=== PATIENT | female | born 1960 | race Caucasian/White ===

== ENCOUNTER 2017-08-17 19:44 | Emergency (ER) | payer MEDICARE ==
[~2017-08-17] VITALS: Ht 165.1 cm; Wt 104.5 kg
[2017-08-17 19:55] VITALS: Ht 165.1 cm; Wt 104.5 kg
[2017-08-17] MEDS ORDERED: HCTZ25 MG PO (19:56)
[2017-08-17] MEDS ORDERED: CELEXA10 MG PO (19:56)
[2017-08-17] MEDS ORDERED: NEURONTIN 300300 MG PO (19:57)
[2017-08-17] MEDS ORDERED: AMITRIPTYLINE H50 MG PO (19:57)
[2017-08-17] MEDS ORDERED: CYCLOBENZAPRINE10 MG PO (19:57)
[2017-08-17] MEDS ORDERED: VOLTAREN75 MG PO (20:25)
[2017-08-17] MEDS ORDERED: DOXYCYCLINE HY100 M2 PO (20:25)
[2017-08-17 21:07] VITALS: BP 147/87
== END 2017-08-17 20:55 | disposition home or self-care (01) ==
LOC: D.ER 19:44
DX: L03.313 Cellulitis of chest wall (principal)

== ENCOUNTER 2017-10-14 16:24 | Emergency (ER) | payer MEDICAID ==
[~2017-10-14] VITALS: Ht 165.1 cm; Wt 63.6 kg
[~2017-10-14 16:24] MED LIST: AMITRIPTYLINE H50 MG PO; CELEXA10 MG PO; CYCLOBENZAPRINE10 MG PO; DOXYCYCLINE HY100 M2 PO; HCTZ25 MG PO; NEURONTIN 300300 MG PO; VOLTAREN75 MG PO
[2017-10-14 16:58] VITALS: Ht 165.1 cm; Wt 63.6 kg
[2017-10-14] MEDS ORDERED: ALDACTONE25 MG PO (17:00)
[2017-10-14] MEDS ORDERED: KEFLEX500 MG PO (17:01)
[2017-10-14] MEDS ORDERED: NEURONTIN 400400 MG PO (17:01)
[2017-10-14] MEDS ORDERED: BUTALB-APAP-CA1 EACH PO (17:01)
[2017-10-14] MEDS ORDERED: PROAIR HFA8.5 GM INH (17:02)
[2017-10-14 18:01] LABS: BASOPHILS 0.3 % (0-2); EOSINOPHILS 3.2 % (0-7); HEMATOCRIT 42.9 % (36.0-48.0); HEMOGLOBIN 14.3 g/dL (12-16); IMMATURE GRANULOCYTES 0.2 % (0-5); LYMPHOCYTES 21.7 % (15-50); MCH 31.3 pg (26.0-34.0); MCHC 33.3 g/dL (31.0-37.0); MCV 93.9 fL (80.0-100.0); MEAN PLATELET VOLUME 9.2 fL (7.4-10.4); MONOCYTES 8.6 % (2-11); PLATELET COUNT 189 10x3/uL (130-400); RBC 4.57 10x6/uL (4.00-5.40); RDW 12.8 % (11.5-14.5); WBC 8.8 10x3/uL (4.8-10.8)
[2017-10-14 18:24] LABS: ALBUMIN 3.3 g/dL (3.4-5.0); ALKALINE PHOSPHATASE 85 U/L (46-116); ALT (SGPT) 27 U/L (10-68); BILIRUBIN - TOTAL 0.36 mg/dL (0.2-1.3); CALC OSMOLALITY 281 mosm/kg (275-300); CARBON DIOXIDE 32.1 mmol/L (21.0-32.0); CHLORIDE - SERUM 108 mmol/L (98-107); GLUCOSE 84 mg/dL (74-106); POTASSIUM - SERUM 3.6 mmol/L (3.5-5.1); PROTEIN - SERUM 6.5 g/dL (6.4-8.2); SODIUM 143 mmol/L (136-145); UREA NITROGEN 8 mg/dL (7-18); eGFR NON AFRICAN AMERICAN 61 mL/min (90-120)
[2017-10-14 18:33] LABS: PRO BNP 66 pg/mL (0-125)
[2017-10-14 19:00] LABS: TROPONIN-I < 0.017 ng/mL (0.000-0.060)
[2017-10-14] MEDS ORDERED: BAYER CHEWABLE81 MG PO (21:46)
[2017-10-14 23:10] VITALS: BP 133/67
== END 2017-10-14 23:10 | disposition home or self-care (01) ==
LOC: D.ER 16:24
PROVIDERS: Family Medicine
DX: R22.42 Localized swelling, mass and lump, left lower limb (principal); F17.200 Nicotine dependence, unspecified, uncomplicated

== ENCOUNTER 2017-11-20 18:16 | Inpatient (IN) | payer MEDICAID ==
[~2017-11-20] VITALS: Ht 165.1 cm; Wt 68.2 kg
--- NOTE | ~2017-11-20 | EC ---
PATIENT:JERRY CORONA DATE OF SERVICE: 11/21/17 SEX: F MEDICAL RECORD: [id number] DATE OF : 58 [facility] AGE OF PATIENT: 57 ADMISSION DATE: 11/21/17 REFERRING PHYSICIAN: INTERPRETING PHYSICIAN: JANAK RAGLAND MD ECHOCARDIOGRAM REPORT ECHO CHARGES 4 ECHO COMPLETE Date: 11/21/17 CLINICAL DIAGNOSIS: SYNCOPE/TIA VS. CVA ECHOCARDIOGRAPHIC MEASUREMENTS (adult normal given) AC root (d.<3.7cm) 3.0 cm LV Septum d (<1.2 cm> 1.2 cm Valve Excursion 2.0 cm LV Septum (systole) 1.7 cm Left Atria (s.<4.0cm> 3.8 cm LVPW d(<1.2cm) 1.2 cm RV (d.<2.3cm) 2.3 cm LVPW (sytole) 1.7 cm LV diastole(<5.6CM) 5.0 cm MV E-F(>70mm/sec) cm LV systole 3.5 cm LVOT Diameter 2.1 cm MV exc.(>10mm) cm Est.ejection fraction (50-75%) % DOPPLER: LVIT cm/sec A 78.0 cm/sec E 70.0 cm/sec LA cm/sec RVSP 38.4 mmHg LVOT 73.0 cm/sec AOP1/2T m/s Asc. Ao 141 cm/sec RVOT 61.0 cm/sec RA cm/sec PA 89.0 cm/sec AV Gradient Peak 8.0 mmHg AV Mean 4.0 mmHg AV Area 1.7 cm MV Gradient Peak 3.8 mmHg MV Mean 1.6 mmHg MV Area cm COMMENTS: Director Marketing Analytics: Carmela VILLELAOE Automation Controls Engineer: Osbaldo Muhammad TAPE# PACS Pericardial Effusion N DATE OF SERVICE: 11/21/2017 Echocardiogram FINDINGS: 1. Left ventricular chamber size is within normal limits. Left ventricular systolic function is normal. Overall ejection fraction estimated at 55%. 2. Left atrium, right atrium, and right ventricle chamber sizes are within normal limits. 3. Valvular structures have normal structure and motion. ECHOCARDIOGRAM REPORT [id number] JERRY CORONA 4. Doppler interrogation reveals woaz-rc-wfxwlkck mitral regurgitation, uvcu-ih-kiuewnww tricuspid regurgitation, no other valvular insufficiency or stenosis. Pulmonary systolic pressure is estimated at 38 mmHg. 5. No evidence of pericardial effusion or left ventricular thrombus. TRANSINT:[id number] Voice Confirmation ID: [id number] DOCUMENT ID: [id number] JANAK RAGLAND MD at 1823 CC: [id number] DICTATION DATE: 11/22/17908 SORTING AND FOLDING SUPERVISOR: 11/22/1739 DIS IN 11/22/17 [facility] [address] [place] [address]
[~2017-11-20 18:16] MED LIST changes: +ALDACTONE25 MG PO; +BAYER CHEWABLE81 MG PO; +BUTALB-APAP-CA1 EACH PO; +KEFLEX500 MG PO; +NEURONTIN 400400 MG PO; +PROAIR HFA8.5 GM INH
[2017-11-20] MEDS ORDERED: LASIX20 MG PO (18:27)
[2017-11-20] MEDS ORDERED: LEVAQUIN250 MG PO (18:28)
[2017-11-20] MEDS ORDERED: OMEPRAZOLE20 M1 PO (18:28)
[2017-11-20 18:53] LABS: BASOPHILS 0.3 % (0-2); EOSINOPHILS 2.3 % (0-7); HEMATOCRIT 40.1 % (36.0-48.0); HEMOGLOBIN 13.4 g/dL (12-16); IMMATURE GRANULOCYTES 0.4 % (0-5); LYMPHOCYTES 15.1 % (15-50); MCHC 33.4 g/dL (31.0-37.0); MCV 92.8 fL (80.0-100.0); MEAN PLATELET VOLUME 8.9 fL (7.4-10.4); MONOCYTES 10.5 % (2-11); NEUTROPHILS 71.4 % (40-80); PLATELET COUNT 208 10x3/uL (130-400); RBC 4.32 10x6/uL (4.00-5.40); RDW 12.4 % (11.5-14.5)
[2017-11-20 19:19] LABS: ALBUMIN 3.2 g/dL (3.4-5.0); ALKALINE PHOSPHATASE 96 U/L (46-116); ALT (SGPT) 26 U/L (10-68); BILIRUBIN - TOTAL 0.45 mg/dL (0.2-1.3); CALC OSMOLALITY 283 mosm/kg (275-300); CALCIUM 8.2 mg/dL (8.5-10.1); CARBON DIOXIDE 28.1 mmol/L (21.0-32.0); CHLORIDE - SERUM 106 mmol/L (98-107); CREATININE - SERUM 1.2 mg/dL (0.6-1.3); GLUCOSE 125 mg/dL (74-106); PROTEIN - SERUM 6.6 g/dL (6.4-8.2); SODIUM 143 mmol/L (136-145); UREA NITROGEN 8 mg/dL (7-18); eGFR NON AFRICAN AMERICAN 49 mL/min (90-120)
[2017-11-20 19:47] LABS: CKMB 0.6 U/L (0.0-3.6); CREATINE KINASE 53 UL (21-215)
[2017-11-20 20:00] LABS: TROPONIN-I < 0.017 ng/mL (0.000-0.060)
[2017-11-20 21:45] LABS: CKMB 0.5 U/L (0.0-3.6); CREATINE KINASE 50 UL (21-215); TROPONIN-I < 0.017 ng/mL (0.000-0.060)
[2017-11-20] MEDS ORDERED: PHENERGAN DM SYR5 ML (23:46)
[2017-11-21] VITALS (9 sets, daily range): BP systolic 90–137; BP diastolic 42–74; Ht 165.1 cm; Wt 68.2 kg
[2017-11-21 03:41] LABS: BASOPHILS 0.3 % (0-2); EOSINOPHILS 4.6 % (0-7); HEMATOCRIT 35.9 % (36.0-48.0); HEMOGLOBIN 11.8 g/dL (12-16); IMMATURE GRANULOCYTES 0.3 % (0-5); LYMPHOCYTES 29.3 % (15-50); MCH 30.4 pg (26.0-34.0); MCHC 32.9 g/dL (31.0-37.0); MCV 92.5 fL (80.0-100.0); MEAN PLATELET VOLUME 9.1 fL (7.4-10.4); MONOCYTES 12.7 % (2-11); NEUTROPHILS 52.8 % (40-80); PLATELET COUNT 209 10x3/uL (130-400); RBC 3.88 10x6/uL (4.00-5.40); RDW 12.7 % (11.5-14.5); WBC 7.6 10x3/uL (4.8-10.8)
[2017-11-21 04:11] LABS: CALC OSMOLALITY 285 mosm/kg (275-300); CALCIUM 7.7 mg/dL (8.5-10.1); CARBON DIOXIDE 27.8 mmol/L (21.0-32.0); CHLORIDE - SERUM 109 mmol/L (98-107); CKMB 0.4 U/L (0.0-3.6); CREATINE KINASE 39 UL (21-215); CREATININE - SERUM 0.9 mg/dL (0.6-1.3); GLUCOSE 144 mg/dL (74-106); POTASSIUM - SERUM 3.4 mmol/L (3.5-5.1); SODIUM 143 mmol/L (136-145); UREA NITROGEN 8 mg/dL (7-18); eGFR NON AFRICAN AMERICAN 68 mL/min (90-120)
[2017-11-21 04:17] LABS: TROPONIN-I < 0.017 ng/mL (0.000-0.060)
[2017-11-21 10:06] LABS: CKMB 0.6 U/L (0.0-3.6); CREATINE KINASE 38 UL (21-215)
[2017-11-21 10:07] LABS: TROPONIN-I < 0.017 ng/mL (0.000-0.060)
[2017-11-22 04:00] VITALS: BP 130/74
[2017-11-22 05:32] LABS: BASOPHILS 0.4 % (0-2); EOSINOPHILS 4.8 % (0-7); HEMATOCRIT 39.9 % (36.0-48.0); HEMOGLOBIN 13.1 g/dL (12-16); IMMATURE GRANULOCYTES 0.3 % (0-5); LYMPHOCYTES 19.6 % (15-50); MCH 30.4 pg (26.0-34.0); MCHC 32.8 g/dL (31.0-37.0); MCV 92.6 fL (80.0-100.0); MEAN PLATELET VOLUME 9.1 fL (7.4-10.4); NEUTROPHILS 64.9 % (40-80); PLATELET COUNT 218 10x3/uL (130-400); RBC 4.31 10x6/uL (4.00-5.40); RDW 12.5 % (11.5-14.5); WBC 7.7 10x3/uL (4.8-10.8)
[2017-11-22 05:53] LABS: ALBUMIN 2.8 g/dL (3.4-5.0); ALKALINE PHOSPHATASE 90 U/L (46-116); BILIRUBIN - TOTAL 0.23 mg/dL (0.2-1.3); CALCIUM 8.2 mg/dL (8.5-10.1); CARBON DIOXIDE 28.9 mmol/L (21.0-32.0); CHLORIDE - SERUM 107 mmol/L (98-107); CHOLESTEROL, TOTAL 227 mg/dL (0-200); CREATININE - SERUM 0.7 mg/dL (0.6-1.3); GLUCOSE 116 mg/dL (74-106); HDL CHOLESTEROL 45 mg/dL (32-96); LDL CHOLESTEROL 150 mg/dL (0-100); LDL-HDL RATIO 3.3 ratio (1.5-3.5); PROTEIN - SERUM 6.1 g/dL (6.4-8.2); SODIUM 142 mmol/L (136-145); TRIGLYCERIDE 162 mg/dL (30-200); eGFR NON AFRICAN AMERICAN > 90 mL/min (90-120)
[2017-11-22 05:55] LABS: ALT (SGPT) 18 U/L (10-68); CALC OSMOLALITY 280 mosm/kg (275-300); POTASSIUM - SERUM 4.2 mmol/L (3.5-5.1); UREA NITROGEN 5 mg/dL (7-18)
[2017-11-22 07:37] VITALS: BP 141/70
[2017-11-22 10:57] VITALS: BP 132/66
== END 2017-11-22 15:00 | disposition home or self-care (01) | DRG 69 ==
LOC: D.ER 18:16 → D.M3 21:14 → OBSVTIME 21:14 → D.M3 21:14 → D.ER 21:52 → D.M3 11-21 15:37
PROVIDERS: Family Medicine
DX: G45.9 Transient cerebral ischemic attack, unspecified (principal); R55 Syncope and collapse; R40.2364 Coma scale, best motor response, obeys commands, 24 hours or more after hospital admission; R40.2144 Coma scale, eyes open, spontaneous, 24 hours or more after hospital admission; R40.2254 Coma scale, best verbal response, oriented, 24 hours or more after hospital admission; E86.0 Dehydration; E87.6 Hypokalemia; Z72.0 Tobacco use

== ENCOUNTER 2017-12-09 19:25 | Emergency (ER) | payer MEDICAID ==
[~2017-12-09] VITALS: Ht 165.1 cm; Wt 63.6 kg
[~2017-12-09 19:25] MED LIST changes: +LASIX20 MG PO; +LEVAQUIN250 MG PO; +OMEPRAZOLE20 M1 PO; +PHENERGAN DM SYR5 ML
[2017-12-09 19:42] VITALS: Ht 165.1 cm; Wt 63.6 kg
[2017-12-09 20:15] LABS: BASOPHILS 0.1 % (0-2); EOSINOPHILS 8.1 % (0-7); HEMATOCRIT 42.2 % (36.0-48.0); HEMOGLOBIN 14.3 g/dL (12-16); IMMATURE GRANULOCYTES 0.2 % (0-5); LYMPHOCYTES 7.7 % (15-50); MCH 31.2 pg (26.0-34.0); MCHC 33.9 g/dL (31.0-37.0); MCV 92.1 fL (80.0-100.0); MEAN PLATELET VOLUME 9.3 fL (7.4-10.4); MONOCYTES 5.3 % (2-11); NEUTROPHILS 78.6 % (40-80); PLATELET COUNT 216 10x3/uL (130-400); RBC 4.58 10x6/uL (4.00-5.40); WBC 8.3 10x3/uL (4.8-10.8)
[2017-12-09 20:29] LABS: ALBUMIN 3.3 g/dL (3.4-5.0); ANION GAP 12.8 mmol/L (8-16); BILIRUBIN - TOTAL 0.46 mg/dL (0.2-1.3); CARBON DIOXIDE 28.1 mmol/L (21.0-32.0); CREATININE - SERUM 0.9 mg/dL (0.6-1.3); POTASSIUM - SERUM 3.9 mmol/L (3.5-5.1); PROTEIN - SERUM 6.8 g/dL (6.4-8.2)
[2017-12-09 20:54] LABS: APPEARANCE CLEAR (CLEAR); BILIRUBIN NEGATIVE (NEGATIVE); COLOR YELLOW (YELLOW); GLUCOSE NEGATIVE (NEGATIVE); KETONE NEGATIVE (NEGATIVE); NITRITE NEGATIVE (NEGATIVE); PROTEIN NEGATIVE (NEGATIVE); RED CELLS - URINE OCC /hpf (0-5); UROBILINOGEN NORMAL (NORMAL); WHITE CELLS - URINE NSEEN /hpf (0-5)
[2017-12-09 20:55] LABS: BACTERIA NONE SEEN /hpf (NONE SEEN); EPITHELIAL CELLS RARE /hpf (0-5)
[2017-12-09] MEDS ORDERED: ZOFRAN ODT4 MG/UDTAB PO (23:53)
[2017-12-09] MEDS ORDERED: BENTYL 20 MG TA20 MG PO (23:53)
[2017-12-10 00:23] VITALS: BP 107/73
== END 2017-12-10 00:24 | disposition home or self-care (01) ==
LOC: D.ER 19:25
PROVIDERS: Family Medicine
DX: A08.4 Viral intestinal infection, unspecified (principal); R11.2 Nausea with vomiting, unspecified

== ENCOUNTER → 2018-05-05 23:49 | Outpatient (CLI) | payer MEDICAID ==
[2017-12-09 19:42] VITALS: BMI 23.3
[~2018-05-05 23:49] MED LIST changes: +BENTYL 20 MG TA20 MG PO; +ZOFRAN ODT4 MG/UDTAB PO
== END | disposition home or self-care (01) ==
LOC: D.MAMMO 16:00
PROVIDERS: ATTEND Nurse Practitioner Family
DX: Z12.31 Encounter for screening mammogram for malignant neoplasm of breast (principal)

== ENCOUNTER 2018-06-15 08:00 | Outpatient (CLI) | payer MEDICAID ==
[2017-12-09 19:42] VITALS: BMI 23.3
== END 2018-06-15 09:00 | disposition home or self-care (01) ==
LOC: D.MAMMO 08:00
PROVIDERS: ATTEND Family Medicine
DX: R92.1 Mammographic calcification found on diagnostic imaging of breast (principal); N64.89 Other specified disorders of breast

== ENCOUNTER 2019-01-08 07:47 | Day surgery (SDC) | payer MEDICAID ==
[2019-01-07 11:10] LABS: HEMATOCRIT 40.2 % (36.0-48.0); HEMOGLOBIN 12.8 g/dL (12-16); MCH 30.8 pg (26.0-34.0); MCHC 31.8 g/dL (31.0-37.0); MCV 96.6 fL (80.0-100.0); MEAN PLATELET VOLUME 8.7 fL (7.4-10.4); RBC 4.16 10x6/uL (4.00-5.40); WBC 10.7 10x3/uL (4.8-10.8)
[~2019-01-08] VITALS: Ht 165.1 cm; Wt 68.0 kg
[2019-01-08] MEDS ORDERED: AUGMENTIN 875-11 TAB PO (08:23)
[2019-01-08] MEDS ORDERED: MOBIC7.5 MG PO (08:24)
[2019-01-08] MEDS ORDERED: CATAPRES0.1 MG PO (08:25)
[2019-01-08 08:28] VITALS: BP 132/72; Ht 165.1 cm; Wt 68.0 kg
--- NOTE | 2019-01-08 08:36 | NUR ---
SUICIDE SCREEN POSITIVE FOR LIFETIME QUESTION, NOTIFIED BOYD MONTOYA.
[2019-01-08] MEDS ORDERED: HYDROCODON-ACE1 EAC7 PO (08:55)
--- NOTE | 2019-01-08 09:50 | NUR ---
DR. HERNANDEZ NOTIFIED AND REVIEWED PT'S BEHAVIOR AND ASSESSMENT RESULTS. PT IS A LOW RISK PER DR. HERNANDEZ. DR. HERNANDEZ STATED TO GIVE RESOURCES TO PT AT TIME OF DISCHARGE. NO FURTHER ORDERS AT THIS TIME. RESOURCES REVIEWED WITH PT AND SHE VERBALIZED UNDERSTANDING.
--- NOTE | 2019-01-08 13:52 | OP ---
PATIENT NAME: JERRY CORONA MEDICAL RECORD: [id number] :58 LOCATION:[facility] ADMISSION DATE: SURGEON: HARDEEP PAGE DO DATE OF OPERATION: 01/08/2019 PROCEDURE PERFORMED: Excision of lipoma on the left shoulder, superficial. PREOPERATIVE DIAGNOSIS: Lipoma greater than 5 cm or soft tissue mass, left shoulder. POSTOPERATIVE DIAGNOSIS: Lipoma greater than 5 cm or soft tissue mass, left shoulder. INDICATIONS: Ms. Corona is a 58-year-old female who has had this mass on her left shoulder for quite some time. She is tired of dealing with it, it has affected her activities of daily living and she wanted it removed. An MRI was done and indicated a lipoma, nonmalignant. I informed her of the risks including infection, bleeding, recurrence of the lipoma, damage to nerves and vessels, need for further surgery, and she signed the consent. SURGEON: Hardeep Page DO DESCRIPTION OF PROCEDURE: The patient was taken to the operative suite, laid in supine position. Given general anesthetic and LMA was placed. She was given 2 grams of Ancef preoperatively. Left shoulder was then prepped and draped in sterile fashion. A time-out was performed. Everyone was in agreement as to the correct side, site, patient and procedure. Incision then began over the lipoma in an oblique fashion in case she had to have another shoulder surgery. The skin was incised and the lipoma was removed. Any bleeding was coagulated with a Bovie at that time. Once I felt the extent of the tumor was removed, it was thoroughly irrigated and Todd was placed on the wound to cut down on any possible bleeding. She was then closed with 2-0 Vicryl in inverted interrupted fashion, 4-0 Monocryl ran on the skin and Dermabond on the skin. It was dressed with Telfa and Tegaderm. She was then awakened and taken to recovery in stable condition. Blood loss approximately 25 mL. COMPLICATIONS: None. TRANSINT:[id number] Voice Confirmation ID: [id number] DOCUMENT ID: [id number] HARDEEP PAGE DO at 1352 CC: [id number] DICTATION DATE: 01/08/19 1116 INSTRUCTION LIBRARIAN: 01/08/[address] [facility] [place] [address]
== END 2019-01-08 12:58 | disposition home or self-care (01) ==
LOC: D.OPS 07:47 → D.PAN 09:40 → D.OPS 09:45
PROVIDERS: Anesthesiology; ATTEND Orthopaedic Surgery
DX: D17.22 Benign lipomatous neoplasm of skin and subcutaneous tissue of left arm (principal)

== ENCOUNTER → 2019-04-22 09:01 | Outpatient (CLI) | payer MEDICAID ==
[2019-01-08 08:28] VITALS: BMI 25.0
[~2019-04-22 09:01] MED LIST changes: +AUGMENTIN 875-11 TAB PO; +CATAPRES0.1 MG PO; +HYDROCODON-ACE1 EAC7 PO; +MOBIC7.5 MG PO
== END | disposition home or self-care (01) ==
LOC: D.NM 09:01
PROVIDERS: ATTEND Internal Medicine Gastroenterology
DX: R10.84 Generalized abdominal pain (principal)

== ENCOUNTER → 2019-05-12 10:49 | Outpatient (CLI) | payer MEDICAID ==
[2019-01-08 08:28] VITALS: BMI 25.0
[~2019-05-12 10:49] MED LIST changes: +CELEXA20 MG PO
== END | disposition home or self-care (01) ==
LOC: D.RAD 10:49
PROVIDERS: ATTEND Nurse Practitioner
DX: R10.9 Unspecified abdominal pain (principal)

== ENCOUNTER 2019-05-14 13:13 | Inpatient (IN) | payer MEDICAID ==
[~2019-05-14] VITALS: Ht 165.1 cm; Wt 104.8 kg
[~2019-05-14 13:13] MED LIST changes: -CELEXA20 MG PO
[2019-05-14 14:43] LABS: BASOPHILS 0.7 % (0-2); EOSINOPHILS 12.5 % (0-7); HEMATOCRIT 34.3 % (36.0-48.0); HEMOGLOBIN 10.7 g/dL (12-16); IMMATURE GRANULOCYTES 0.3 % (0-5); LYMPHOCYTES 26.4 % (15-50); MCH 27.2 pg (26.0-34.0); MCHC 31.2 g/dL (31.0-37.0); MCV 87.1 fL (80.0-100.0); MEAN PLATELET VOLUME 8.8 fL (7.4-10.4); MONOCYTES 8.7 % (2-11); NEUTROPHILS 51.4 % (40-80); PLATELET COUNT 328 10x3/uL (130-400); RBC 3.94 10x6/uL (4.00-5.40); RDW 13.8 % (11.5-14.5); WBC 7.6 10x3/uL (4.8-10.8)
[2019-05-14] MEDS ORDERED: CELEXA20 MG PO (14:55)
[2019-05-14] MEDS ORDERED: MOBIC7.5 MG PO (14:56)
[2019-05-14 14:58] LABS: ANION GAP 10.9 mmol/L (8-16); CALCIUM 7.8 mg/dL (8.5-10.1); CARBON DIOXIDE 28.1 mmol/L (21.0-32.0)
[2019-05-14 15:04] LABS: ALBUMIN 2.9 g/dL (3.4-5.0); BILIRUBIN - TOTAL 0.46 mg/dL (0.2-1.3); MAGNESIUM - SERUM 2.1 mg/dL (1.8-2.4); PROTEIN - SERUM 5.8 g/dL (6.4-8.2)
[2019-05-14 15:19] VITALS: BP 132/76; BMI 38.5
[2019-05-14 17:03] LABS: BILIRUBIN NEGATIVE (NEGATIVE); GLUCOSE NEGATIVE (NEGATIVE); KETONE NEGATIVE (NEGATIVE); NITRITE NEGATIVE (NEGATIVE); SPECIFIC GRAVITY 1.015 (1.005-1.020); UROBILINOGEN NORMAL (NORMAL)
[2019-05-14 20:00] VITALS: BP 140/62
[2019-05-15] VITALS: BP 107/73
[2019-05-15 04:00] VITALS: BP 112/67
[2019-05-15 06:15] LABS: BASOPHILS 0.8 % (0-2); EOSINOPHILS 11.4 % (0-7); HEMATOCRIT 32.9 % (36.0-48.0); IMMATURE GRANULOCYTES 0.2 % (0-5); LYMPHOCYTES 25.9 % (15-50); MCH 26.7 pg (26.0-34.0); MCHC 30.4 g/dL (31.0-37.0); MEAN PLATELET VOLUME 8.8 fL (7.4-10.4); MONOCYTES 12.2 % (2-11); NEUTROPHILS 49.5 % (40-80); PLATELET COUNT 299 10x3/uL (130-400); RBC 3.74 10x6/uL (4.00-5.40); RDW 14.1 % (11.5-14.5); WBC 6.4 10x3/uL (4.8-10.8)
[2019-05-15 06:29] LABS: ANION GAP 9.9 mmol/L (8-16); CALCIUM 8.1 mg/dL (8.5-10.1); CARBON DIOXIDE 28.2 mmol/L (21.0-32.0); MAGNESIUM - SERUM 2.3 mg/dL (1.8-2.4); PHOSPHOROUS 4.1 mg/dL (2.5-4.9); POTASSIUM - SERUM 4.1 mmol/L (3.5-5.1)
--- NOTE | 2019-05-15 07:54 | NUR ---
RESTING IN BED WITH EYES OPEN, ALERT AND ORIENTED. IV LOCATED TO RIGHT FOREARM RUNNING NS @ 100, PROTONIX @ 10ML/HR. NO S/S OF DISTRESS AT THIS TIME, DENIES NEEDS OTHER THAN ZOPHRAN WHICH IT ISNT TIME FOR ,WILL TAKE WHEN ITS DUE. WILL CONT TO MONITOR.
[2019-05-15 08:29] VITALS: BP 147/72
[2019-05-15 12:23] VITALS: Ht 165.1 cm; Wt 104.8 kg
[2019-05-15 12:47] VITALS: BP 118/79
--- NOTE | 2019-05-15 15:30 | NUR ---
PT IS BECOMING VERY IRRITABLE AND CUSSING AT STAFF. COMPLAINS THAT HE WANTS TO GET OFF OF HIS BOTTOM SO I TRIED TO MOVE HIM OVER ON HIS SIDE WHERE HE PROCEEDED TO TELL ME THAT I WAS A DUMBASS FOR SUGGESTING THAT AND THAT HE ISNT ABLE TO LAY ON HIS SIDE. OFFERED TO PULL HIM UP IN BED WHERE HE PROCEEDED TO TELL ME THAT WOULDNT WORK AND I WAS STUPID FOR MENTIONING THAT.
[2019-05-15 16:45] VITALS: BP 128/69
--- NOTE | 2019-05-15 17:00 | NUR ---
PT COMPLAINING ABOUT BOTTOM HURTING, ALLOWED US TO PLACE A PILLOW UNDER HIS BOTTOM, REMOVED HIS SCDS AFTER HE DAMANDED THEY BE TAKEN OFF, PLACED PILLOW UNDER HIS LEGS. WILL CONT TO MONITOR.
--- NOTE | 2019-05-15 19:00 | NUR ---
BEDSIDE REPORT RECEIVED AND CARE OF PT ASSUMED. PT LYING IN HIGH DIAZ'S POSITION VISITING WITH FAMILY MEMBER. IV TO RIGHT FA INFILTRATED...TURNED OFF. WILL MONITOR FOR NEEDS.
--- NOTE | 2019-05-15 19:28 | NUR ---
HS MEDICATIONS GIVEN. MIXED MIRALAX AND METAMUCIL WITH ORANGE JUICE. FAMILY MEMBER IS AT BEDSIDE.
--- NOTE | 2019-05-15 19:45 | NUR ---
STARTED NEW IV TO LEFT WRIST USING 22 GUAGE CATHETER IN ONE STICK. IV FLUIDS RE-STARTED.
[2019-05-15 20:00] VITALS: BP 117/81
[2019-05-16 04:00] VITALS: BP 118/83
[2019-05-16 06:07] LABS: BASOPHILS 0.8 % (0-2); EOSINOPHILS 12.5 % (0-7); HEMATOCRIT 36.4 % (36.0-48.0); HEMOGLOBIN 11.1 g/dL (12-16); IMMATURE GRANULOCYTES 0.2 % (0-5); LYMPHOCYTES 31.4 % (15-50); MCH 27.1 pg (26.0-34.0); MCHC 30.5 g/dL (31.0-37.0); MCV 88.8 fL (80.0-100.0); MEAN PLATELET VOLUME 9.2 fL (7.4-10.4); MONOCYTES 10.2 % (2-11); NEUTROPHILS 44.9 % (40-80); RDW 13.9 % (11.5-14.5); WBC 6.3 10x3/uL (4.8-10.8)
[2019-05-16 06:23] LABS: ANION GAP 10.8 mmol/L (8-16); CALCIUM 8.2 mg/dL (8.5-10.1); CARBON DIOXIDE 28.8 mmol/L (21.0-32.0); MAGNESIUM - SERUM 2.3 mg/dL (1.8-2.4); PHOSPHOROUS 3.5 mg/dL (2.5-4.9); POTASSIUM - SERUM 3.6 mmol/L (3.5-5.1)
[2019-05-16 06:29] LABS: PLATELET COUNT 376 10x3/uL (130-400)
[2019-05-16 07:39] VITALS: BP 148/83
--- NOTE | 2019-05-16 08:11 | NUR ---
SHE IS AWAKE THIS MORNING, STILL NO BM YET. MORNING MEDS GIVEN. FAMILY AT THE BEDSIDE. NO NEW ISSUES.
[2019-05-16 11:47] VITALS: BP 148/80
[2019-05-16 15:19] VITALS: BP 144/75
--- NOTE | 2019-05-16 19:00 | NUR ---
BEDSIDE REPORT RECEIVED AND CARE OF PT ASSUMED. PT LYING IN MID DIAZ'S POSITION VISITING WITH FAMILY MEMBER. IV TO LEFT WRIST PATENT WITH NS INFUSING AT 100ML/HR AND PROTONIX INFUSING AT 10 ML/HR. PT CURRENTLY DRINKING GOLYTELY PER ORDER.
[2019-05-16 20:00] VITALS: BP 156/77
--- NOTE | 2019-05-16 20:35 | NUR ---
HS MEDICATIONS GIVEN. MIXED MIRALAX AND METAMUCIL WITH JUICE.
[2019-05-17] VITALS: BP 146/89
[2019-05-17 04:00] VITALS: BP 127/71
[2019-05-17 05:23] LABS: BASOPHILS 0.8 % (0-2); EOSINOPHILS 13.3 % (0-7); HEMATOCRIT 35.8 % (36.0-48.0); IMMATURE GRANULOCYTES 0.4 % (0-5); LYMPHOCYTES 29.9 % (15-50); MCH 26.7 pg (26.0-34.0); MCHC 30.7 g/dL (31.0-37.0); MCV 86.9 fL (80.0-100.0); MEAN PLATELET VOLUME 9.1 fL (7.4-10.4); MONOCYTES 13.7 % (2-11); NEUTROPHILS 41.9 % (40-80); PLATELET COUNT 343 10x3/uL (130-400); RBC 4.12 10x6/uL (4.00-5.40); RDW 13.7 % (11.5-14.5); WBC 5.2 10x3/uL (4.8-10.8)
[2019-05-17 05:38] LABS: ANION GAP 9.8 mmol/L (8-16); CALCIUM 8.2 mg/dL (8.5-10.1); CARBON DIOXIDE 29.7 mmol/L (21.0-32.0); CREATININE - SERUM 0.9 mg/dL (0.6-1.3); MAGNESIUM - SERUM 2.1 mg/dL (1.8-2.4); PHOSPHOROUS 3.2 mg/dL (2.5-4.9); POTASSIUM - SERUM 3.5 mmol/L (3.5-5.1)
--- NOTE | 2019-05-17 07:55 | NUR ---
SHE STILL HAS NOT HAD A BM, PASSING GAS. DID NOT DRINK VERY MUCH OF THE MEDICINE TO MAKE HER GO TO HAVE A BM. I EDUCATED HER ABOUT THE IMPORTANCE OF DRINKING/TAKING HER MEDS.
[2019-05-17 08:58] VITALS: BP 140/88
--- NOTE | 2019-05-17 08:58 | NUR ---
HAD A SOFT FORMED BM.
[2019-05-17] MEDS ORDERED: METAMUCIL PACKE1 PKT PO (12:21)
[2019-05-17] MEDS ORDERED: MIRALAX17 GM PO (12:21)
[2019-05-17] MEDS ORDERED: CARAFATE1 G PO (12:21)
--- NOTE | 2019-05-17 12:57 | MORECARE ---
CASE MANAGEMENT DISCHARGE SUMMARY PATIENT: JERRY CORONA UNIT: [id number] ADM DATE: 05/14/19 AGE: 58 : 58 SEX: F ROOM/BED: D.2209 AUTHOR: MARIE CHARLES PHYSICIAN: REFERRING PHYSICIAN: PIYUSH BARBOSA MD DATE OF SERVICE: 05/17/19 Discharge Plan Patient Name: JERRY CORONA [facility] [facility] 1960 Planned Disposition: Home Anticipated Discharge Date: Discharge Date: Expected LOS: Initial Reviewer: [email or web address] Initial Review Date: 05/14/2019 Generated: 05/17/19 1:56 pm Patient Name: JERRY CORONA Page 52821 at 1257 All edits/amendments must be made on the electronic document DICTATION DATE: 05/17/19 1256 [place] ATTENDANT: LON 05/17/19 1256 RPT#: [id number] DC DATE: STATUS: ADM IN [facility] [address] [place] [address] END OF REPORT
--- NOTE | 2019-05-17 13:03 | MORECARE ---
CASE MANAGEMENT DISCHARGE SUMMARY PATIENT: JERRY CORONA UNIT: [id number] ADM DATE: 05/14/19 AGE: 58 : 58 SEX: F ROOM/BED: D.2200 AUTHOR: MELVIN,DOC PHYSICIAN: REFERRING PHYSICIAN: PIYUSH BARBOSA MD DATE OF SERVICE: 05/17/19 Discharge Plan Patient Name: JERRY CORONA Facility: [facility]:[place] : 1960 Planned Disposition: Home Anticipated Discharge Date: Discharge Date: Expected LOS: Initial Reviewer: [email or web address] Initial Review Date: 05/14/2019 Generated: 05/17/19 2:03 pm Comments DCP- Discharge Planning Updated by [email or web address]: Angela Geller on 05/17/19 12:[address] Patient Name: JERRY CORONA Admission Status: Elective Accout number: [id number] Admission Date: 05-14-2019 : 1960 Admission Diagnosis: Attending: PIYUSH ALANIZ Current LOS: 3 Anticipated DC Date: Planned Disposition: Home Primary Insurance: MEDICAID [place] Discharge Planning Comments: CM met with patient to complete initial dc planning assessment. CM educated patient on the CM role and verbal consent given by patient to complete assessment. Patient lives at home with her daughter where she is independent with her care at home. At discharge patient plans to return home and feels this is a safe discharge. She will drive herself home. CM discussed availability of home health, rehab services, and medical equipment. Patient denied known discharge needs at this time. CM will continue to follow and will assist as needed with dc plans/needs. Vice President Client Services: Angela Geller DCPIA - Discharge Planning Initial Assessment Updated by [email or web address]: Angela Geller on 05/17/19 1:01 pm * Is the patient Alert and Oriented? Yes * How many steps to enter\exit or inside your home? * PCP ARSALAN * Pharmacy [facility] [address] * Preadmission Environment Home with Family * ADLs Independent * Equipment None * List name and contact numbers for known caregivers / representatives who currently or will assist patient after discharge: CRYSTAL (DAUGHTER) * Verbal permission to speak to the caregivers and representatives has been obtained from the patient. N/A * Community resources currently utilized Home Health * Additional services required to return to the preadmission environment? No * Can the patient safely return to the preadmission environment? Yes * Has this patient been hospitalized within the prior 30 days at any hospital? No Last DP export: 05/17/19 11:56 a Patient Name: JERRY CORONA Page 86412 at 1303 All edits/amendments must be made on the electronic document DICTATION DATE: 05/17/19 1303 BLENDING OPERATOR: LON 05/17/19 1303 RPT#: [id number] DC DATE: STATUS: ADM IN [facility] [address] [place] [address] END OF REPORT
[2019-05-17 13:49] VITALS: BP 148/63
--- NOTE | 2019-05-17 15:14 | NUR ---
IV OUT, DISCHARGE INSTRUCTIONS GONE OVER, QUESTIONS ANSWERED. SHE WALKDED OUT WITH OUR [facility].
--- NOTE | 2019-05-18 10:04 | MORECARE ---
CASE MANAGEMENT DISCHARGE SUMMARY PATIENT: JERRY CORONA UNIT: [id number] ADM DATE: 05/14/19 AGE: 58 : 58 SEX: F ROOM/BED: D.2201 AUTHOR: MELVINDOC PHYSICIAN: REFERRING PHYSICIAN: PIYUSH BARBOSA MD DATE OF SERVICE: 05/18/19 Discharge Plan Patient Name: JERRY CORONA Facility: [facility]:[place] : 1960 Planned Disposition: Home Anticipated Discharge Date: Discharge Date: 05/17/2019 Expected LOS: 0 Initial Reviewer: [email or web address] Initial Review Date: 05/14/2019 Generated: 05/18/19 11:04 am Comments DCP- Discharge Planning Updated by [email or web address]: Angela Geller on 05/17/19 12:[address] Patient Name: JERRY CORONA Admission Status: Elective Accout number: [id number] Admission Date: 05-14-2019 : 1960 Admission Diagnosis: Attending: PIYUSH ALANIZ Current LOS: 3 Anticipated DC Date: Planned Disposition: Home Primary Insurance: MEDICAID [place] Discharge Planning Comments: CM met with patient to complete initial dc planning assessment. CM educated patient on the CM role and verbal consent given by patient to complete assessment. Patient lives at home with her daughter where she is independent with her care at home. At discharge patient plans to return home and feels this is a safe discharge. She will drive herself home. CM discussed availability of home health, rehab services, and medical equipment. Patient denied known discharge needs at this time. CM will continue to follow and will assist as needed with dc plans/needs. [employer] Programmer: Angela Geller DCPIA - Discharge Planning Initial Assessment Updated by [email or web address]: Angela Geller on 05/17/19 1:01 pm * Is the patient Alert and Oriented? Yes * How many steps to enter\exit or inside your home? * PCP ARSALAN * Pharmacy [facility] [address] * Preadmission Environment Home with Family * ADLs Independent * Equipment None * List name and contact numbers for known caregivers / representatives who currently or will assist patient after discharge: CRYSTAL (DAUGHTER) * Verbal permission to speak to the caregivers and representatives has been obtained from the patient. N/A * Community resources currently utilized Home Health * Additional services required to return to the preadmission environment? No * Can the patient safely return to the preadmission environment? Yes * Has this patient been hospitalized within the prior 30 days at any hospital? No Last DP export: 05/17/19 12:03 p Patient Name: JERRY CORONA Page [id number] at 1004 All edits/amendments must be made on the electronic document DICTATION DATE: 05/18/19 1004 ELECTRICAL SUBCONTRACTOR: LON 05/18/19 1004 RPT#: [id number] DC DATE:05/17/19 STATUS: DIS IN [facility] [address] [place] [address] END OF REPORT
== END 2019-05-17 15:16 | disposition home or self-care (01) | DRG 389 ==
LOC: D.MS 13:13
PROVIDERS: Internal Medicine Nephrology; ADMIT Family Medicine; ATTEND Family Medicine
DX: K56.609 Unspecified intestinal obstruction, unspecified as to partial versus complete obstruction (principal); E44.0 Moderate protein-calorie malnutrition; K59.00 Constipation, unspecified; E86.0 Dehydration; K21.9 Gastro-esophageal reflux disease without esophagitis; J45.909 Unspecified asthma, uncomplicated; M79.7 Fibromyalgia; F32.9 Major depressive disorder, single episode, unspecified; D64.9 Anemia, unspecified

== ENCOUNTER → 2019-11-19 08:52 | Outpatient (CLI) | payer MEDICARE, MEDICAID ==
[2019-05-15 12:23] VITALS: BMI 38.4
[~2019-11-19 08:52] MED LIST changes: +CARAFATE1 G PO; +CELEXA20 MG PO; +METAMUCIL PACKE1 PKT PO; +MIRALAX17 GM PO
== END | disposition home or self-care (01) ==
LOC: D.HCCECHO 08:52
PROVIDERS: ATTEND Internal Medicine Cardiovascular Disease
DX: I20.9 Angina pectoris, unspecified (principal); R01.1 Cardiac murmur, unspecified

== ENCOUNTER 2019-12-08 10:32 | Day surgery (SDC) | payer MEDICARE, MEDICAID ==
[~2019-12-08] VITALS: Ht 165.1 cm; Wt 73.6 kg
--- NOTE | ~2019-12-08 | HEMODYNAMI ---
PATIENT:JERRY CORONA MEDICAL RECORD: [id number] : 58 LOCATION:[facility] ADMISSION DATE: 12/08/19 Generatedon:12/08/201913:17 Patient name: JERRY CORONA Patient #: [id number] SSN: [id number] : 1960 Date of study: 12/08/2019 Page: Of Hemodynamic Procedure Report Patient Data Patient Demographics Procedure consent was obtained First Name: JERRY Gender: Female Last Name: CJ : 1960 [facility] Initial: D Age: 59 year(s) Patient #: [id number] Race: SSN: [id number] Additional ID: [id number] Contact details Address: [place] [address] State: [place] City: [place] Zip code: [address] Past Medical History Performed procedures and imaging results Date Procedure Procedure Results Comments 11/19/2019 Stress testing Positive->Intermediate with SPECT MPI risk Allergies: No known allergies Admission Admission Data Admission Date: 12/08/2019 Admission Time: 10:32 Arrival Date: 12/08/2019 Arrival Time: 0:00 Admit Source: Other Insurance Payor: Medicare [facility] #: [id number] Height (in.): 65 BSA: 1.81 (m2) Height (cm.): 165.1 BMI: 27.01 (kg/m2) Weight (lbs.): 162.33 Weight (kg.): 73.63 Lab Results Lab Result Date: 12/08/2019 Lab Result Time: 0:00 Biochemistry Name Units Result Min Max BUN mg/dl 13 --(--*-)-- 7 18 Creatinine mg/dl 1.1 --(--*-)-- 0.6 1.3 eGFR ml/min 54 *-(----)-- 90 120 NONAFRICAN CBC Name Units Result Min Max Hematocrit % 38.9 *-(----)-- 42 54 Hemoglobin g/dl 12.3 *-(----)-- 13.5 17.5 Procedure Procedure Types Cath Procedure Diagnostic Procedure [facility] w/Coronaries Sedation Charges Moderate Sedation up to 15 minutes Procedure Description Procedure Date Procedure Date: 12/08/2019 Procedure Start Time: 13:01 Procedure End Time: 13:16 Procedure Staff Name Function Julio Zuluaga MD Performing Physician Sienna Barriga RT Monitor Charley Lee RT Scrub Arnoldo Wetzel RN Nurse Indication Chest pain Procedure Data Cath Procedure Fluoroscopy Diagnostic fluoroscopy Total fluoroscopy Time: 4.6 time: 4.6 min min Diagnostic fluoroscopy Total fluoroscopy dose: 508 dose: 508 mGy mGy Contrast Material Contrast Material Type Amount (ml) Isovue 370 58 Entry Location Entry Primary Successful Side Size Upsize Upsize Entry Closure Rick ccessful Closure Location (Fr) 1 (Fr) 2 (Fr) Remarks Device Remarks Radial Right 6 Fr Mechanical artery Short Compression Estimated blood loss: 5 ml Diagnostic catheters Device Type Used For End Catheter Placement DIAGNOSTIC Clearwater 110cm 5 Procedure Fr catheter ([id number]) DIAGNOSTIC Pigtail 5Fr Procedure catheter ([id number]) Procedure Complications No complications Procedure Medications Medication Administration Route Dosage 0.9% NaCl I.V. 100 ml/hr Oxygen etCO2 Nasal cannula 2 l/min Heparin Flush Bag added to field 2 bags (1000units/500ml NS) Lidocaine 2% added to field 20 Radial Cocktail added to field 1 syringe (Verapamil 2mg/Nitro 400mcg/Heparin 1500units) Versed I.V. 2 mg Fentanyl I.V. 100 mcg Radial Cocktail I.A. 1 syringe (Verapamil 2mg/Nitro 400mcg/Heparin 1500units) Versed I.V. 1 mg Hemodynamics Rest BSA: 1.81 (m2) HGB: 12.3 (g/dl) O2 Consumption: Estimated: 183.05 (ml/min) O2 Co nsumption indexed: Estimated:101.13 (ml/min/m) Heart Rate: 87 (bpm) Pressure Samples Time Site Value (mmHg) Purpose Heart Use Rate(bpm) 13:04 LV 117/58,66 Snapshot 114 13:05 AO (51) Pullback 98 13:05 LV 78/6,14 Pullback 98 13:13 AO 102/75(82) Pullback 93 13:13 LV 111/19,20 Pullback 93 Gradients Valve Time Site 1 Site 2 Mean SEP/DFP Peak To Heart Use (mmHg) (sec/min) Peak Rate (mmHg) (bpm) Aortic 13:05 LV AO 2 5 98 78/6,14 (51) Aortic 13:13 LV AO 16 24 9 93 111/19,20 102/75(82) Calculations Valve P-P Mean Valve Index Valve Source Name Gradient Area Flow (cm2) Aortic 9 16 9 16 Snapshots Pre Cath Intra NCS Post Cath Vital Signs Time Heart Resp SPO2 etCO2 NIBP (mmHg) Rhythm Pain Sedation Rate (ipm) (%) (mmHg) Status Level (bpm) 12:52:34 94 15 100 39.1 141/85(105) NSR 0 (11) 10(A) , No pain 12:56:44 95 10 97 44.4 139/84(109) NSR 0 (11) 10(A) , No pain 13:00:52 94 12 96 43.6 127/83(113) NSR 0 (11) 10(A) , No pain 13:05:06 91 11 94 42.1 93/53(85) NSR 0 (11) 9(A) , No pain 13:10:01 103 12 97 47.3 92/62(79) NSR 0 (11) 9(A) , No pain 13:13:54 97 11 95 47.4 107/79(102) NSR 0 (11) 9(A) , No pain Medications Time Medication Route Dose Verified Delivered Reason Notes Effectiveness by by 12:51:51 0.9% NaCl I.V. 100 Arnoldo Arnoldo Per ml/hr Rashard Wetzel physician RN RN 12:52:05 Oxygen etCO2 2 l/min Arnoldo Arnoldo for low 02 Nasal Lorigan Lorigan sats cannula RN RN 12:52:17 Heparin Flush added 2 bags Arnoldo Arnoldo used for Bag to Lorigan Lorigan procedure (1000units/500ml RN RN NS) 12:52:27 Lidocaine 2% added 20ml Arnoldo Arnoldo for local to vial Lorigan Lorigan anesthetic field MONGE RN 12:52:37 Radial Cocktail added 1 Arnoldo Arnoldo used for (Verapamil to syringe Lorigan Lorigan procedure 2mg/Nitro RN RN 400mcg/Heparin 1500units) 13:02:23 Versed I.V. 2 mg Arnoldo Arnoldo for sedation Rashard Wetzel RN RN 13:02:30 Fentanyl I.V. 100 mcg Arnoldo Arnoldo for sedation Rashard Wetzel RN RN 13:04:17 Radial Cocktail I.A. 1 Arnoldo Julio for (Verapamil syringe Rashard Zuluaga MD vasodilation 2mg/Nitro RN 400mcg/Heparin 1500units) 13:04:28 Versed I.V. 1 mg Arnoldo Arnoldo for sedation Rashard Wetzel RN [employer] Log Time Note 11:41:25 Informed consent obtained and on chart 11:41:41 Diagnostic Cath Status : Elective 11:43:46 Indication : Chest pain 11:44:14 Lab Result : eGFR NONAFRICAN 54 ml/min 11:44:14 Lab Result : Hemoglobin 12.3 g/dl 11:44:14 Lab Result : BUN 13 mg/dl 11:44:14 Lab Result : Creatinine 1.1 mg/dl 11:44:14 Lab Result : Hematocrit 38.9 % 11:44:18 Arrival Date: 12/08/2019 12:00:00 AM 11:44:19 Admit Source: Other 11:44:21 Patient Height : 65 inches 11:44:25 Patient Weight : 162.33 lbs 11:44:32 Insurance Payor : Medicare 11:46:05 ACC Patient presents with Stable Angina CCS Anginal Class 2--Slight limitation of ordinary activity. 11:46:08 Procedure Status Elective Heart Cath (OP). 11:46:09 Time tracking: Regular hours (M-F 7:00 - 5:00) 11:46:14 Plan of Care:Hemodynamics will remain stable., Cardiac rhythm will remain stable., Comfort level will be maintained., Respiratory function will remain adequate., Patient/ family verbilizes understanding of procedure., Procedure tolerated without complication., Recovers from procedure without complications.. 11:46:32 H&P Date Dictated: 12/08/2019 Within 30 days and on chart.. 11:46:33 Pre-procedure instructions explained to patient. 11:46:33 Pre-op teaching completed and patient verbalized understanding. 11:46:36 Patient NPO since Midnight. 11:46:42 Patient allergic to No known allergies 11:46:47 Lab results completed and on chart. 11:47:04 Stress Test: yes; abnormal INFERIOR 11:47:08 Alarms reviewed by R. N. 11:47:08 Sharps counted by scrub and verified by R.N. 12:34:25 Charley Lee RT(R) sent for patient. Start room use. 12:34:34 Family in patients room. 12:41:26 Patient received from Pre/Post Procedure Room to CCL 2 Alert and oriented. Tansferred to table in Supine position. 12:41:27 Warm blankets applied, and ritu hugger turned on for patient comfort. 12::27 Correct patient and procedure confirmed by team. 12::28 ECG and BP/O2 sat monitors applied to patient. 12:51:31 Full Disclosure recording started 12:51:32 Vital chart was started 12:51:36 Rhythm: sinus rhythm 12:51:37 Baseline sample Acquired. 12:51:44 Is the patient allergic to Iodine/contrast media? No. 12:51:48 Was the patient premedicated? No 12:51:49 Is patient on blood thinner?No 12:51:51 0.9% NaCl 100 ml/hr I.V. was administered by Arnoldo Wetzel RN; Per physician; Verbal order read back and verified. 12:51:51 Patient diabetic? No. 12:51:54 If diabetic: On Metformin? N/A 12:51:56 Patient not . Patient is over age 55. 12:51:57 ----Pre-sedation anethsthesia assessment.---- 12:51:59 Previous problem with sedation/anesthesia? No ? 12:52:01 Snore? Unknown 12:52:03 Sleep apnea? No 12:52:04 Deviated septum? No 12:52:05 Oxygen 2 l/min etCO2 Nasal cannula was administered by Arnoldo Wetzel RN; for low 02 sats; Verbal order read back and verified. 12:52:06 Opens mouth fully? Yes 12:52:07 Sticks out tongue? Yes 12:52:09 Airway obstruction? No ? 12:52:11 Dentures? No ? 12:52:17 Heparin Flush Bag (1000units/500ml NS) 2 bags added to field was administered by Arnoldo Wetzel RN; used for procedure; Verbal order read back and verified. 12:52:27 Lidocaine 2% 20ml vial added to field was administered by Arnoldo Wetzel RN; for local anesthetic; Verbal order read back and verified. 12:52:34 Pre procedure: right dorsailis pedis pulse 2+ Normal; easily identifiable; not easily obliterated 12:52:37 Radial Cocktail (Verapamil 2mg/Nitro 400mcg/Heparin 1500units) 1 syringe added to field was administered by Arnoldo Wetzel RN; used for procedure; Verbal order read back and verified. 12:52:38 Modified Jimi's test Ulnar < 7 seconds 12:52:41 Patient pain scale 0/10 ?. 12:52:45 IV patent on arrival in left antecubital with 0.9% NaCl at [facility]. 12:52:50 Right Radial & Right Groin area was prepped with chlora-prep and draped in sterile fashion 12:52:54 Use device set Radial Dx or PCI 12:52:55 ACIST Syringe (54689) opened to sterile field. 12:52:56 Medline Cath Pack ([id number]) opened to sterile field. 12:52:56 Bag Decanter (2002S) opened to sterile field. 12:52:58 ACIST Hand Control (45603) opened to sterile field. 12:52:58 ACIST Manifold (83146) opened to sterile field. 12:52:59 [facility] Wrist Support ([id number]) opened to sterile field. 12:53:00 NEEDLE Cook 21G 4cm Radial (M17864) opened to sterile field. 12:53:02 EMERALD Guide Wire (835-918) opened to sterile field. 12:53:02 SHEATH 6FR RAIN (9870615) opened to sterile field. 13:00:55 --------ALL STOP TIME OUT------ 13:00:56 Final Timeout: patient, procedure, and site verified with staff and physician. All members of the team are in agreement. 13:01:01 Right Radial & Right Groin site verified by team. 13:01:04 Fire Safety Assessment: A--An alcohol-based skin anteseptic being used preoperatively., C--Open oxygen or nitrous oxide is being used., D--An ESU, laser, or fiber-optic light is being used. 13:01:08 Physical assessment completed. ASA score P 2 - A patient with mild systemic disease as per Julio Zuluaga MD. 13:01:12 3a) 45-59 Moderately reduced kidney function. 13:01:15 Maximum allowable contrast dose (3.7 X eGFR X 0.75)150 ml. 13:01:19 Sedation plan: IV Moderate Sedation Medication:Versed, Fentanyl 13::23 Procedure started. 13:01:27 Local anesthetic to right radial artery with Lidocaine 2% by Julio Zuluaga MD.INITIAL ACCESS ONLY 13:02:23 Versed 2 mg I.V. was administered by Arnoldo Wetzel RN; for sedation; Verbal order read back and verified. 13:02:30 Fentanyl 100 mcg I.V. was administered by Arnoldo Wetzel RN; for sedation; Verbal order read back and verified. 13:02:51 A 6 Fr Short sheath was inserted into the Right Radial artery 13:03:43 A DIAGNOSTIC [place] 110cm 5 Fr catheter (070843) was advanced over the wire and used for Procedure. 13:04:17 Radial Cocktail (Verapamil 2mg/Nitro 400mcg/Heparin 1500units) 1 syringe I.A. was administered by Julio Zuluaga MD; for vasodilation; Verbal order read back and verified. 13:04:28 Versed 1 mg I.V. was administered by Arnoldo Wetzel RN; for sedation; Verbal order read back and verified. 13:04:35 LV gram done using LEGER 13:04:41 Injector settings: Ml/sec: 5, Volume: 15, 13:04:59 LV hemodynamics recorded. 13:05:42 EF : 35 % 13:06:01 Zero performed for pressure channel P1 13:07:15 RCA angiography performed. 13:07:18 Injector settings: Ml/sec: 3, Volume: 6, 13:08:09 Catheter exchanged over wire. 13:09:07 GUIDE 6FR JL 3.5 guide catheter ([id number]) opened to sterile field. 13:10:23 LCA angiography performed. 13:10:26 Injector settings: Ml/sec: 3, Volume: 6, 13:10:49 ACCDominant side:Left 13:11:24 Catheter exchanged over wire. 13:12:22 A DIAGNOSTIC Pigtail 5Fr catheter ([id number]) was advanced over the wire and used for Procedure. 13:13:24 LV gram done using LEGER 13:13:29 Injector settings: Ml/sec: 5, Volume: 15, 13:13:38 EF : 35 % 13:13:40 Catheter removed. 13:13:46 ZEPHYR REGULAR TR BAND (322706) opened to sterile field. 13:13:57 Sheath removed intact; hemostasis achieved with Mechanical Compression to the Right Radial artery. 13:13:59 Procedure ended.(Physican Out) 13:14:20 Fluoroscopy time 04.60 minutes. 13:14:23 Flurop Dose total: 508 13:14:23 Fluoroscopy dose: 508 mGy 13:14:27 Dose Area Product 87234 mGy/cm. 13:14:31 Contrast amount:Isovue 370 58ml. 13:14:34 Maximum allowable dose exceeded? No. 13:14:35 Sharps counted by scrub and verified by R.N. 13:14:38 [place] band inflated with 11cc of air. 13:14:40 Post Procedure Pulses reassessed and unchanged 13:14:43 Post procedure: right dorsailis pedis pulse 2+ Normal; easily identifiable; not easily obliterated. 13:14:48 Post-procedure physical assessment completed. ASA score P 2 - A patient with mild systemic disease as per Julio Zuluaga MD. 13:14:50 Post procedure rhythm: unchanged. 13:14:53 Estimated blood loss: 5 ml 13:14:54 Post procedure instruction explained to patient.Patient verbalizes understanding. 13:14:55 Patient needs reinforcement of post procedure teaching. 13:15:14 Procedure type changed to Cath procedure, Diagnostic procedure, LHC, [facility] w/Coronaries, Sedation Charges, Moderate Sedation up to 15 minutes 13:15:54 Procedure and supply charges have been captured, reviewed, submitted and are correct. 13:15:59 Procedure Complication : No complications 13:16:03 [facility] Findings: mild to moderate CAD (<70%) 13:16:06 Operative report dictated upon procedure completion. 13:16:07 See physician's report for complete and final results. 13:16:16 Report given to Pre/Post Procedure Room. 13:16:20 Patient transfered to Pre/Post Procedure Room with Stretcher. 13:16:47 Vital chart was stopped 13:16:50 Procedure ended. 13:16:50 Full Disclosure recording stopped 13:17:00 End room use (Document Last) 13:17:11 End room use (Document Last) 13:17:36 End room use (Document Last) Device Usage Item Name Manufacture Quantity Catalog Hospital Part Current Minima l Lot# / Number Charge Number Stock Stock Serial# Code ACIST Acist 1 33372 660816 175880 [id number] 20 Syringe Medical (74790) Systems Inc Medline Medline 1 [id number] 824704 73115 409370 5 Cath Pack ([id number]) Bag Microtek 1 2001S 750796 71756 408884 5 Decanter Medical Inc. () ACIST Hand Acist 1 68538 124994 253436 143118 5 Control Medical (23828) Systems Inc ACIST Acist 1 89731 137853 968502 514308 5 Manifold Medical (19406) Systems Inc MBrace Advanced 1 140-0250-00 085570 75941 169808 5 Wrist Vascular Support Dynamics ([id number]) NEEDLE Cook Arria NLG Medical 1 [id number] 231525 033273 397931 5 21G 4cm Radial (Q42809) EMERALD Cardinal 1 502-455 224134 401291 765535 5 Guide Wire Health (502455) SHEATH 6FR Cardinal 1 [id number] 586269 0412526 295339 5 [facility] (6530027) DIAGNOSTIC Terumo 1 40-3173 375701 129353 266623 5 Clearwater 110cm 5 Fr catheter (188162) GUIDE 6FR Medtronic 1 [id number] 528106 35560 749144 1 JL 3.5 guide catheter (HL0QC78) DIAGNOSTIC Cardinal 1 [id number] 156064 897377 562749 5 Pigtail 5Fr Health catheter (349486V) ZEPHYR Cardinal 1 291219 113774 3298508 264839 5 REGULAR TR Health BAND (139428) Signature Audit Lindsay Stage Time Signature Unsigned Intra-Procedure 12/08/2019 Sienna Barriga 1:17:11 PM RT(R) Intra-Procedure 12/08/2019 Arnoldo 1:17:36 PM Rashard MONGE Intra-Procedure 12/08/2019 Julio Zuluaga MD 1:17:53 PM Signatures Performing Physician : Signature : Julio Zuluaga MD Date : Time : Monitor : Sienna Young Signature : RT Date : Time : Nurse : Arnoldo Lorigan Signature : RN Date : Time : [address] [place] [address]
[2019-12-08 11:06] VITALS: BP 145/63; Ht 165.1 cm; Wt 73.6 kg
[2019-12-08 11:11] LABS: BASOPHILS 0.6 % (0-2); EOSINOPHILS 7.2 % (0-7); HEMATOCRIT 38.9 % (36.0-48.0); HEMOGLOBIN 12.3 g/dL (12-16); IMMATURE GRANULOCYTES 0.2 % (0-5); LYMPHOCYTES 22.2 % (15-50); MCH 27.8 pg (26.0-34.0); MCHC 31.6 g/dL (31.0-37.0); MCV 87.8 fL (80.0-100.0); MEAN PLATELET VOLUME 8.9 fL (7.4-10.4); MONOCYTES 8.9 % (2-11); NEUTROPHILS 60.9 % (40-80); PLATELET COUNT 294 10x3/uL (130-400); RBC 4.43 10x6/uL (4.00-5.40); RDW 14.9 % (11.5-14.5); WBC 8.8 10x3/uL (4.8-10.8)
[2019-12-08 11:29] LABS: ANION GAP 11.7 mmol/L (8-16); CALCIUM 8.5 mg/dL (8.5-10.1); CARBON DIOXIDE 28.4 mmol/L (21.0-32.0); CHOL - HDL RATIO 4.5 ratio (2.3-4.1); CREATININE - SERUM 1.1 mg/dL (0.6-1.3); LDL-HDL RATIO 2.7 ratio (1.5-3.5); POTASSIUM - SERUM 4.1 mmol/L (3.5-5.1)
--- NOTE | 2019-12-08 13:33 | NUR ---
PT RECEIVED BACK TO ROOM 6 FROM [facility] FOR RECOVERY. PT DROWSY BUT VERBALLY AROUSABLE. PT DENIES PAIN OR DISCOMFORT. IV PATENT INFUSING VIA ORDERS. ZYPHER BAND AND IMMOBILIZER TO R WRIST/ARM, NO BLEEDING OR S/S HEMATOMA NOTED. CAP REFILL BRISK, ARM PINK AND WARM. PT PLACED ON CARDIAC MONITORS, HR NSR 89, BP 113/62, RR 13, SAT 93 ON ROOM AIR. CALL LIGHT IN REACH, NO FAMILY PRESENT AT THIS TIME.
--- NOTE | 2019-12-08 14:00 | NUR ---
ZBAND AND IMMOBILIZER IN PLACE, NO S/S HEMATOMA OR BLEEDING NOTED. ARM PINK AND WARM, CAP REFILL BRISK. SPRITE GIVEN PER PT REQUEST. PT DENIES PAIN OR NEEDS AT THIS TIME. CALL LIGHT IN REACH
--- NOTE | 2019-12-08 14:29 | NUR ---
3CC AIR REMOVED FROM Z BAND, NO BLEEDING NOTED. HOB ELEVATED, SANDWICH TRAY SERVED. PT DENIES PAIN OR NEEDS AT THIS TIME. CALL LIGHT REMAINS IN REACH
--- NOTE | 2019-12-08 14:50 | NUR ---
5 ADD'L CC AIR REMOVED FROM ZBAND, NO BLEEDING OR S/S HEMATOMA NOTED. PT TOLERATED LUNCH W/O DIFFICULITY. CALL LIGHT IN REACH, PT DENIES PAIN OR NEEDS
--- NOTE | 2019-12-08 15:10 | NUR ---
DR TORRES AT , NO NEW ORDERS RECEIVED. DISCHARGE INSTRUCTIONS REVIEWED W PT AND DAUGHTER, BOTH VERBALIZED UNDERSTANDING. IV REMOVED, MONITORS REMOVED AND PT UP TO DRESS FOR DISCHARGE. 1516 ZBAND REMOVED NO BLEEDING OR S/S HEMATOMA NOTED. 2X2 AND SM TEGADERM DRESSING APPLIED. IMMOBILIZER REPOSITIONED.
--- NOTE | 2019-12-08 15:29 | NUR ---
PT TO BR VIA WC, VOIDING W/O DIFFICULITY. PT THEN DISCHARGED VIA WC TO DAUGHTER WAITING IN PRIVATE CAR. PT HAD ALL BELONGINGS AND DC PAPERWORK
== END 2019-12-08 15:29 | disposition home or self-care (01) ==
LOC: D.CATH 10:32
PROVIDERS: ATTEND Internal Medicine Cardiovascular Disease
DX: I20.9 Angina pectoris, unspecified (principal); R94.39 Abnormal result of other cardiovascular function study; R07.9 Chest pain, unspecified; I10 Essential (primary) hypertension; Z82.49 Family history of ischemic heart disease and other diseases of the circulatory system